=== PATIENT | male | born 1945 | race Caucasian/White ===

== ENCOUNTER → 2018-11-02 | Outpatient (CLI) | payer MEDICARE, OTHER ==
[~2018-11-02] MED LIST: CHOL500045 PO; CLO75 PO; FLAX100042 PO; GAB300 PO; GLUC-198 PO; LOPE-88 PO; LOPE-95 PO; PRA20 PO; PRAV80TA29 PO; SODI1TAB PO; TAMS0.4C70 PO; TEST200V20 IM
--- NOTE | 2018-11-02 16:20 | RT STRESS TEST REPORT ---
FACILITY: [facility] PATIENT NAME: ILYA RODRIGUEZ : [id number] MR: [id number] V: [id number] EXAM DATE: ORDERING PHYSICIAN: URIEL DODGE TECHNOLOGIST: Berta Acquisition Time: 2018-11-02 14:37:36 Total Exercise Time: 00:06:16 Test Indications: CHEST PAIN Medications: SEE NUCLEQR MED SHEET Protocol: SAURABH 2 Max HR: 131 BPM 90% of Pred: 145 BPM Max BP: 179/077 mmHG Max Work Load: 7.3 METS He is noted to have some unifocal PVCs at rest. EKGs during exercise show 1-2mm horizontal ST depress ion in V5 and V6. He also had frequent PVCs, which were multifocal with several couplets and a few triplets. He reported some dyspnea during exer cise, but no chest pain. Recovery showed decreased frequency of ventricular ectopy. IMPRESSION: Suspect High Probability of Ischemia with increased ventricular ectopy. Await Myoview Irene ges. Confirmed by BYRON CHÁVEZ ([id number]) on 11/02/2018 4:19:37 PM Referred By: Overread By: BYRON CHÁVEZ
--- NOTE | 2018-11-02 16:44 | RADIOLOGY IMAGING REPORT ---
FACILITY: [facility] PATIENT NAME: Mike Dumont : 1945 MR: [id number] V: [id number] EXAM DATE: ORDERING PHYSICIAN: URIEL DODGE TECHNOLOGIST: Location: [facility] Patient: Mike Dumont : 1945 Visit/Account:[id number] Date of Sevice: 11/02/2018 EXAMINATION: Single Isotope SPECT Imaging with Exercise and Gated SPECT Imaging DATE OF EXAMINATION: November 02, 2018 DATE OF INTERPRETATION: November 02, 2018 REQUESTING PHYSICIAN: URIEL DODGE INDICATION: The patient is a 73-year-old male evaluated for chest pain. PROCEDURE: After informed consent the patient received an intravenous injection of 12.0 mCi of Tc-9 9m sestamibi followed at the appropriate time interval by rest imaging. The patient then exercised a ccording to the standard Claudy protocol for 6 minutes achieving 7 METS. Resting heart rate was 68 bp m with a peak heart rate of 131 bpm which is 90 % of maximal predicted heart rate for age. Blood pr essure at rest was 144 / 81; blood pressure during exercise was 179 / 77. There was no chest pain du ring exercise. Exercise was discontinued because of fatigue. Baseline EKG demonstrates normal sinus rhythm with a right bundle branch block. There were [address] depression consistent wit h EKG changes of ischemia at peak exercise. Approximately one minute and 30 seconds prior to the ter mination of exercise, the patient received an intravenous injection of 29.9 mCi of Tc-99m sestamibi f ollowed by stress imaging. RAW DATA: Examination of the summed raw data revealed a good quality study. MYOCARDIAL PERFUSION: The tomographic images demonstrate a mild decrease in myocardial perfusion tra cer uptake in the basal to apical inferior wall seen on rest images that improves with stress imaging . GATED IMAGES: The gated images demonstrate an ejection fraction 62% with no wall motion abnormality IMPRESSION: 1. Normal myocardial perfusion scan with no evidence of ischemia. The mild inferior defect seen on r est imaging that improves with stress imaging is likely diaphragm attenuation artifact 2. Normal myocardial perfusion scan. 3. Normal LV systolic function; LVEF 62%. 4. Based on the results of this exam, the patient appears to be at low risk for future cardiovascular events. Report Dictated By: Fatuma Burrell at 11/02/2018 4:35 PM Report E-Signed By: Fatuma Burrell at 11/02/2018 4:38 PM WSN:[id number]
== END ==
LOC: NUC 06:47
PROVIDERS: ATTEND Family Medicine
DX: R07.89 Other chest pain (principal)
CPT/HCPCS: 78451; 93017; A9502

== ENCOUNTER → 2019-01-08 | Outpatient (CLI) | payer MEDICARE, OTHER | LOC: US 01:51 | PROVIDERS: ATTEND Internal Medicine Interventional Cardiology | DX: I49.3 Ventricular premature depolarization (principal) | CPT/HCPCS: 93306 ==